=== PATIENT | male | born 1995 | race American Indian/Alaskan Native ===

== ENCOUNTER 2019-01-16 02:58 | Emergency (ER) | payer SELFPAY ==
[2019-01-16 03:16] VITALS: BP 123/79
--- NOTE | 2019-01-16 03:39 | XRay Report ---
CHEST 1 VIEW INDICATION: Chest Pain. COMPARISON: None FINDINGS: Support devices: None. Heart: Within normal limits. Lungs/Pleura: No acute air space or interstitial disease. Additional findings: None. IMPRESSION: 1. No acute findings. Signer Name: Doc Sims MD Signed: 01/16/2019 3:35 AM Workstation Name: [id number]
--- NOTE | 2019-01-16 06:32 | Emergency Department Report ---
ED General Adult HPI - General Chief complaint: Chest Pain Stated complaint: CHEST PAIN Time Seen by Provider: 01/16/19 05:57 Source: patient Mode of arrival: Ambulatory Limitations: No Limitations - History of Present Illness Initial comments: pt is a 23 y/o aam who present for chest wall pain exacerbated by deep breathing and movement x 2 days pt denies sob no wheezing no sob , no back pain pt denies injury fall or trauma, no n/v , pt ambulatory with steady gait no pnd no activity intolerance pt endorse hx of anxiety , there is no SI or HI Onset/Timin -: days(s) Location: chest (epigastric) Radiation: non-radiation Severity scale (0 -10): 3 Quality: sharp Consistency: intermittent Improves with: none Worsens with: movement, other (deep inspiration ) Associated Symptoms: chest pain Treatments Prior to Arrival: none - Related Data Previous Rx's Medication Instructions Recorded Last Taken Type Ibuprofen [Motrin 800 MG tab] 800 mg PO Q8HR PRN #30 tablet 01/16/19 Unknown Rx Allergies Allergy/AdvReac Type Severity Reaction Status Date / Time No Known Allergies Allergy Unverified 01/16/19 03:16 ED Review of Systems ROS: Stated complaint: CHEST PAIN Other details as noted in HPI Constitutional: denies: chills, fever Eyes: denies: eye pain, eye discharge, vision change ENT: denies: ear pain, throat pain Respiratory: denies: cough, orthopnea, shortness of breath, SOB with exertion, stridor, wheezing Cardiovascular: chest pain (chest wall pain ). denies: palpitations, dyspnea on exertion, orthopnea, paroxysmal nocturnal dyspnea Endocrine: no symptoms reported Gastrointestinal: denies: abdominal pain, nausea, diarrhea Genitourinary: denies: urgency, dysuria Musculoskeletal: denies: back pain, joint swelling, arthralgia Skin: denies: rash, lesions Neurological: denies: headache, weakness, paresthesias Psychiatric: denies: anxiety, depression Hematological/Lymphatic: denies: easy bleeding, easy bruising ED Past Medical Hx - Past Medical History Previous Medical History?: Yes Hx Headaches / Migraines: Yes Hx Psychiatric Treatment: Yes (Anxiety) Additional medical history: sleep apnea - Surgical History Past Surgical History?: No - Social History Smoking Status: Current Every Day Smoker Substance Use Type: Alcohol - Medications Home Medications: Home Medications Medication Instructions Recorded Confirmed Last Taken Type Ibuprofen [Motrin 800 MG tab] 800 mg PO Q8HR PRN #30 tablet 01/16/19 Unknown Rx ED Physical Exam - General Limitations: No Limitations General appearance: alert, in no apparent distress - Head Head exam: Present: atraumatic, normocephalic, normal inspection - Eye Eye exam: Present: normal appearance, PERRL, EOMI Pupils: Present: normal accommodation - ENT ENT exam: Present: mucous membranes moist - Neck Neck exam: Present: normal inspection, full ROM. Absent: tenderness, meningismus, lymphadenopathy, thyromegaly - Respiratory Respiratory exam: Present: normal lung sounds bilaterally, chest wall tenderness (anterior chest wall pain reproducible to palpation there is no crepitis no stepoff no ecchymosis no swelling ). Absent: respiratory distress, wheezes, stridor, prolonged expiratory - Cardiovascular Cardiovascular Exam: Present: regular rate, normal rhythm, normal heart sounds. Absent: systolic murmur, diastolic murmur, rubs, gallop - GI/Abdominal GI/Abdominal exam: Present: soft, normal bowel sounds. Absent: distended, tenderness, guarding, rebound, rigid, bruit, hernia - Rectal Rectal exam: Present: deferred - Extremities Exam Extremities exam: Present: normal inspection, full ROM, normal capillary refill. Absent: tenderness, pedal edema, joint swelling, calf tenderness - Back Exam Back exam: Present: normal inspection, full ROM. Absent: tenderness, CVA tenderness (R), CVA tenderness (L), muscle spasm, paraspinal tenderness, vertebr al tenderness, rash noted - Neurological Exam Neurological exam: Present: alert, oriented X3, CN II-XII intact, normal gait, reflexes normal. Absent: motor sensory deficit - Psychiatric Psychiatric exam: Present: normal affect, normal mood - Skin Skin exam: Present: warm, dry, intact, normal color. Absent: rash ED Course Vital Signs 01/16/19 03:15 Temperature 98.5 F Pulse Rate 83 Respiratory 18 Rate Blood Pressure 123/79 O2 Sat by Pulse 97 Oximetry ED Medical Decision Making - EKG Data EKG shows normal: sinus rhythm, axis, intervals, QRS complexes, ST-T waves Rate: normal - EKG Data When compared to previous EKG there are: previous EKG unavailable Interpretation: normal EKG (EKG interp by ED attending NSR No ST Elevated IA ) - Radiology Data Radiology results: report reviewed, image reviewed Ordering Physician: SARAH WOMACK MD Date of Service: 01/16/19 Procedure(s): XR chest 1V ap Accession Number(s): [id number] cc: ED MD VU Fluoro Time In Minutes: CHEST 1 VIEW INDICATION: Chest Pain. COMPARISON: None FINDINGS: Support devices: None. Heart: Within normal limits. Lungs/Pleura: No acute air space or interstitial disease. Additional findings: None. IMPRESSION: 1. No acute findings. Signer Name: Doc Sims MD Signed: 01/16/2019 3:35 AM Workstation Name: [id number] Transcribed By: JW Dictated By: Doc Sims MD Electronically Authenticated By: Doc Sims MD Signed Date/Time: 01/16/19334 DD/ 3 TD/TT: - Medical Decision Making cxr: No infiltrate no opacities, ekg: NSR no ST Elevated IA, pain is reproducible to deep palpation, plan: ibuprofen po prn pain follow up with pcp in 2-3 day return to ed if symptoms worsen. pt verbalized agreement and understanding of discharge plan. Critical care attestation.: If time is entered above; I have spent that time in minutes in the direct care of this critically ill patient, excluding procedure time. ED Disposition Clinical Impression: Chest wall pain Disposition: DC-01 TO HOME OR SELFCARE Is pt being admited?: No Does the pt Need Aspirin: No Condition: Stable Instructions: Chest Pain (ED) Prescriptions: Ibuprofen [Motrin 800 MG tab] 800 mg PO Q8HR PRN #30 tablet PRN Reason: Pain , Severe (7-10) Referrals: SOFIA PRABHAKAR MD [Primary Care Provider] - 3-5 Days Forms: Work/School Release Form(ED) Time of Disposition: 06:46
== END 2019-01-16 07:04 | disposition home or self-care (01) ==
LOC: ED 02:58
DX: R07.89 Other chest pain (principal); G43.909 Migraine, unspecified, not intractable, without status migrainosus; F41.9 Anxiety disorder, unspecified; F17.200 Nicotine dependence, unspecified, uncomplicated
CPT/HCPCS: 71045; 93005; 93010

== ENCOUNTER 2019-02-26 01:49 | Emergency (ER) | payer SELFPAY ==
[2019-02-26 02:39] LABS: Hematocrit 43.2 % (35.5-45.6); Hemoglobin 14.5 gm/dl (11.8-15.2); Mean Corpuscular HGB Conc 33 % (32-34); Mean Corpuscular Volume 84 fl (84-94); Platelet Count 294 K/mm3 (140-440); Red Blood Count 5.16 M/mm3 (3.65-5.03); Red Cell Distribution Width 14.1 % (13.2-15.2)
[2019-02-26 02:51] LABS: BUN/Creatinine Ratio 12; Blood Urea Nitrogen 11 mg/dL (9-20); Calcium 8.9 mg/dL (8.4-10.2); Hemolysis Index 12
[2019-02-26 03:51] LABS: Total Cells Counted 100
[2019-02-26 03:52] LABS: Platelet Estimate Consistent w Auto; RBC Morphology Normal
[2019-02-26 04:35] LABS: Amphetamine Screen,Urine PRESUMPTIVE NEGATIVE; Benzodiazepines Screen,Urine PRESUMPTIVE NEGATIVE; Cannabinoid Screen,Urine PRESUMPTIVE NEGATIVE; Cocaine Screen,Urine PRESUMPTIVE NEGATIVE; Methadone Screen,Urine PRESUMPTIVE NEGATIVE; Opiate Screen,Urine PRESUMPTIVE NEGATIVE
[2019-02-26 04:40] LABS: Bacteria,Urine 1+ /HPF (Negative); Bilirubin,Urine NEG (Negative); Blood,Urine NEG (Negative); Color,Urine Yellow (Yellow); Mucus,Urine 1+ /HPF; Protein,Urine <15 mg/dL mg/dL (Negative)
[2019-02-26] MEDS ORDERED: AZITHROMYCIN 250 MG TAB PO ONE (05:38)
[2019-02-26] MEDS ORDERED: LIDOCAINE-MPF (1%) 10 MG/1 ML VIAL 5 ML INFILTRATI ONE (05:38)
--- NOTE | 2019-02-26 05:41 | Emergency Department Report ---
ED Psych HPI - General Chief Complaint: Psych Stated Complaint: MH EVAL/SUICIDAL THOUGHTS Time Seen by Provider: 02/26/19 04:05 Source: patient Mode of arrival: Ambulatory Limitations: No Limitations - History of Present Illness Initial Comments: 23-year-old male with a past medical history of "mood swings" presents to the hospital with suicidal thoughts for "a while". Patient denies plan today. He denies homicidal ideation, auditory, or visual nations. No physical complaints reported. Patient has a history of suicide attempts in the past by hanging while he was in the . He is not currently on any psychiatric medication. - Related Data Home Medications Medication Instructions Recorded Confirmed Last Taken No Known Home Medications [No 02/26/19 02/26/19 Unknown Reported Home Medications] Allergies Allergy/AdvReac Type Severity Reaction Status Date / Time No Known Allergies Allergy Unverified 01/16/19 03:16 ED Review of Systems ROS: Stated complaint: MH EVAL/SUICIDAL THOUGHTS Other details as noted in HPI Comment: All other systems reviewed and negative ED Past Medical Hx - Past Medical History Previous Medical History?: Yes Hx Headaches / Migraines: Yes Hx Psychiatric Treatment: Yes (Anxiety, bipolar, depression) Additional medical history: sleep apnea - Social History Smoking Status: Current Every Day Smoker Substance Use Type: Marijuana - Medications Home Medications: Home Medications Medication Instructions Recorded Confirmed Last Taken Type No Known Home Medications [No 02/26/19 02/26/19 Unknown History Reported Home Medications] ED Physical Exam - General Limitations: No Limitations - Other Other exam information: Gen.: No acute distress Head: Atraumatic Eyes: Normal appearance ENT: Moist mucous membranes Neck: Normal appearance, no posterior midline tenderness, no meningismus Chest: Clear to auscultation bilaterally Cardiovascular: Regular rate and rhythm Abdomen: Normal appearance, soft, nontender, no rebound or guarding, normal bowel sounds Back: Normal appearance, nontender Extremity: Full range of motion, normal appearance Neuro: Alert and oriented 3, clear speech, no focal motor or sensory deficit Psychiatric: Appropriate Skin: No rash ED Course Vital Signs 02/26/19 02:09 Temperature 98.4 F Pulse Rate 78 Respiratory 18 Rate Blood Pressure 127/65 O2 Sat by Pulse 99 Oximetry ED Medical Decision Making - Lab Data Result diagrams: 02/26/19 02:25 02/26/19 02:25 Lab Results 02/26/19 02/26/1919 Range/Units 02:25 02:25 02:25 WBC (4.5-11.0) K/mm3 RBC (3.65-5.03) M/mm3 Hgb (11.8-15.2) gm/dl Hct (35.5-45.6) % MCV (84-94) fl MCH (28-32) pg MCHC (32-34) % RDW (13.2-15.2) % Plt Count (140-440) K/mm3 Add Manual Diff Total Counted Seg Neutrophils % Seg Neuts % (Manual) (40.0-70.0) % Band Neutrophils % % Lymphocytes % (Manual) (13.4-35.0) % Reactive Lymphs % (Man) % Monocytes % (Manual) (0.0-7.3) % Eosinophils % (Manual) (0.0-4.3) % Basophils % (Manual) (0.0-1.8) % Metamyelocytes % % Myelocytes % % Promyelocytes % % Blast Cells % % Nucleated RBC % Seg Neutrophils # Man (1.8-7.7) K/mm3 Band Neutrophils # K/mm3 Lymphocytes # (Manual) (1.2-5.4) K/mm3 Abs React Lymphs (Man) K/mm3 Monocytes # (Manual) (0.0-0.8) K/mm3 Eosinophils # (Manual) (0.0-0.4) K/mm3 Basophils # (Manual) (0.0-0.1) K/mm3 Metamyelocytes # K/mm3 Myelocytes # K/mm3 Promyelocytes # K/mm3 Blast Cells # K/mm3 WBC Morphology Hypersegmented Neuts Hyposegmented Neuts Hypogranular Neuts Smudge Cells Toxic Granulation Toxic Vacuolation Dohle Bodies Pelger-Huet Anomaly Vee Rods Platelet Estimate Clumped Platelets Plt Clumps, EDTA Large Platelets Giant Platelets Platelet Satelliting Plt Morphology Comment RBC Morphology Dimorphic RBCs Polychromasia Hypochromasia Poikilocytosis Anisocytosis Microcytosis Macrocytosis Spherocytes Pappenheimer Bodies Sickle Cells Target Cells Tear Drop Cells Ovalocytes Helmet Cells [place] Bodies [place] Rings [place] Cells Bite Cells Crenated Cell Elliptocytes Acanthocytes (Spur) Rouleaux Hemoglobin C Crystals Schistocytes Malaria parasites Miah Bodies Hem Pathologist Commnt Sodium 137 (137-145) mmol/L Potassium 3.9 (3.6-5.0) mmol/L Chloride 102.3 (98-107) mmol/L Carbon Dioxide 26 (22-30) mmol/L Anion Gap 13 mmol/L BUN 11 (9-20) mg/dL Creatinine 0.9 (0.8-1.5) mg/dL Estimated GFR > 60 ml/min BUN/Creatinine Ratio 12 % Glucose 94 (75-100) mg/dL Calcium 8.9 (8.4-10.2) mg/dL Urine Color (Yellow) Urine Turbidity (Clear) Urine pH (5.0-7.0) Ur Specific [place] (1.003-1.030) Urine Protein (Negative) mg/dL Urine Glucose (UA) (Negative) mg/dL Urine Ketones (Negative) mg/dL Urine Blood (Negative) Urine Nitrite (Negative) Urine Bilirubin (Negative) Urine Urobilinogen (<2.0) mg/dL Ur Leukocyte Esterase (Negative) Urine WBC (Auto) (0.0-6.0) /HPF Urine RBC (Auto) (0.0-6.0) /HPF U Epithel Cells (Auto) (0-13.0) /HPF Urine Bacteria (Auto) (Negative) /HPF Urine Mucus /HPF Salicylates < 0.3 L (2.8-20.0) mg/dL Urine Opiates Screen Urine Methadone Screen Acetaminophen < 5.0 L (10.0-30.0) ug/mL Ur Barbiturates Screen Ur Phencyclidine Scrn Ur Amphetamines Screen U Benzodiazepines Scrn Urine Cocaine Screen U Marijuana (THC) Screen Drugs of Abuse Note Plasma/Serum Alcohol (0-0.07) % 02/26/19 02/26/19 02/26/19 Range/Units 02:25 02:25 03:13 WBC 4.9 (4.5-11.0) K/mm3 RBC 5.16 H (3.65-5.03) M/mm3 Hgb 14.5 (11.8-15.2) gm/dl Hct 43.2 (35.5-45.6) % MCV 84 (84-94) fl MCH 28 (28-32) pg MCHC 33 (32-34) % RDW 14.1 (13.2-15.2) % Plt Count 294 (140-440) K/mm3 Add Manual Diff Complete Total Counted 100 Seg Neutrophils % Summer Counselor Seg Neuts % (Manual) 32.0 L (40.0-70.0) % Band Neutrophils % 0 % Lymphocytes % (Manual) 62.0 H (13.4-35.0) % Reactive Lymphs % (Man) 0 % Monocytes % (Manual) 4.0 (0.0-7.3) % Eosinophils % (Manual) 1.0 (0.0-4.3) % Basophils % (Manual) 1.0 (0.0-1.8) % Metamyelocytes % 0 % Myelocytes % 0 % Promyelocytes % 0 % Blast Cells % 0 % Nucleated RBC % Not Reportable Seg Neutrophils # Man 1.6 L (1.8-7.7) K/mm3 Band Neutrophils # 0.0 K/mm3 Lymphocytes # (Manual) 3.0 (1.2-5.4) K/mm3 Abs React Lymphs (Man) 0.0 K/mm3 Monocytes # (Manual) 0.2 (0.0-0.8) K/mm3 Eosinophils # (Manual) 0.0 (0.0-0.4) K/mm3 Basophils # (Manual) 0.0 (0.0-0.1) K/mm3 Metamyelocytes # 0.0 K/mm3 Myelocytes # 0.0 K/mm3 Promyelocytes # 0.0 K/mm3 Blast Cells # 0.0 K/mm3 WBC Morphology Not Reportable Hypersegmented Neuts Not Reportable Hyposegmented Neuts Not Reportable Hypogranular Neuts Not Reportable Smudge Cells Not Reportable Toxic Granulation Not Reportable Toxic Vacuolation Not Reportable Dohle Bodies Not Reportable Pelger-Huet Anomaly Not Reportable Vee Rods Not Reportable Platelet Estimate Consistent w auto Clumped Platelets Not Reportable Plt Clumps, EDTA Not Reportable Large Platelets Not Reportable Giant Platelets Not Reportable Platelet Satelliting Not Reportable Plt Morphology Comment Not Reportable RBC Morphology Normal Dimorphic RBCs Not Reportable Polychromasia Not Reportable Hypochromasia Not Reportable Poikilocytosis Not Reportable Anisocytosis Not Reportable Microcytosis Not Reportable Macrocytosis Not Reportable Spherocytes Not Reportable Pappenheimer Bodies Not Reportable Sickle Cells Not Reportable Target Cells Not Reportable Tear Drop Cells Not Reportable Ovalocytes Not Reportable Helmet Cells Not Reportable [place] Bodies Not Reportable [place] Rings Not Reportable [place] Cells Not Reportable Bite Cells Not Reportable Crenated Cell Not Reportable Elliptocytes Not Reportable Acanthocytes (Spur) Not Reportable Rouleaux Not Reportable Hemoglobin C Crystals Not Reportable Schistocytes Not Reportable Malaria parasites Not Reportable Miah Bodies Not Reportable Hem Pathologist Commnt No Sodium (137-145) mmol/L Potassium (3.6-5.0) mmol/L Chloride (98-107) mmol/L Carbon Dioxide (22-30) mmol/L Anion Gap mmol/L BUN (9-20) mg/dL Creatinine (0.8-1.5) mg/dL Estimated GFR ml/min BUN/Creatinine Ratio % Glucose (75-100) mg/dL Calcium (8.4-10.2) mg/dL Urine Color Yellow (Yellow) Urine Turbidity Slightly-cloudy (Clear) Urine pH 6.0 (5.0-7.0) Ur Specific [place] 1.027 (1.003-1.030) Urine Protein <15 mg/dl (Negative) mg/dL Urine Glucose (UA) Neg (Negative) mg/dL Urine Ketones Neg (Negative) mg/dL Urine Blood Neg (Negative) Urine Nitrite Neg (Negative) Urine Bilirubin Neg (Negative) Urine Urobilinogen 2.0 (<2.0) mg/dL Ur Leukocyte Esterase Sm (Negative) Urine WBC (Auto) 23.0 H (0.0-6.0) /HPF Urine RBC (Auto) 1.0 (0.0-6.0) /HPF U Epithel Cells (Auto) < 1.0 (0-13.0) /HPF Urine Bacteria (Auto) 1+ (Negative) /HPF Urine Mucus 1+ /HPF Salicylates (2.8-20.0) mg/dL Urine Opiates Screen Urine Methadone Screen Acetaminophen (10.0-30.0) ug/mL Ur Barbiturates Screen Ur Phencyclidine Scrn Ur Amphetamines Screen U Benzodiazepines Scrn Urine Cocaine Screen U Marijuana (THC) Screen Drugs of Abuse Note Plasma/Serum Alcohol < 0.01 (0-0.07) % 02/26/19 Range/Units 03:13 WBC (4.5-11.0) K/mm3 RBC (3.65-5.03) M/mm3 Hgb (11.8-15.2) gm/dl Hct (35.5-45.6) % MCV (84-94) fl MCH (28-32) pg MCHC (32-34) % RDW (13.2-15.2) % Plt Count (140-440) K/mm3 Add Manual Diff Total Counted Seg Neutrophils % Seg Neuts % (Manual) (40.0-70.0) % Band Neutrophils % % Lymphocytes % (Manual) (13.4-35.0) % Reactive Lymphs % (Man) % Monocytes % (Manual) (0.0-7.3) % Eosinophils % (Manual) (0.0-4.3) % Basophils % (Manual) (0.0-1.8) % Metamyelocytes % % Myelocytes % % Promyelocytes % % Blast Cells % % Nucleated RBC % Seg Neutrophils # Man (1.8-7.7) K/mm3 Band Neutrophils # K/mm3 Lymphocytes # (Manual) (1.2-5.4) K/mm3 Abs React Lymphs (Man) K/mm3 Monocytes # (Manual) (0.0-0.8) K/mm3 Eosinophils # (Manual) (0.0-0.4) K/mm3 Basophils # (Manual) (0.0-0.1) K/mm3 Metamyelocytes # K/mm3 Myelocytes # K/mm3 Promyelocytes # K/mm3 Blast Cells # K/mm3 WBC Morphology Hypersegmented Neuts Hyposegmented Neuts Hypogranular Neuts Smudge Cells Toxic Granulation Toxic Vacuolation Dohle Bodies Pelger-Huet Anomaly Vee Rods Platelet Estimate Clumped Platelets Plt Clumps, EDTA Large Platelets Giant Platelets Platelet Satelliting Plt Morphology Comment RBC Morphology Dimorphic RBCs Polychromasia Hypochromasia Poikilocytosis Anisocytosis Microcytosis Macrocytosis Spherocytes Pappenheimer Bodies Sickle Cells Target Cells Tear Drop Cells Ovalocytes Helmet Cells [place] Bodies [place] Rings [place] Cells Bite Cells Crenated Cell Elliptocytes Acanthocytes (Spur) Rouleaux Hemoglobin C Crystals Schistocytes Malaria parasites Miah Bodies Hem Pathologist Commnt Sodium (137-145) mmol/L Potassium (3.6-5.0) mmol/L Chloride (98-107) mmol/L Carbon Dioxide (22-30) mmol/L Anion Gap mmol/L BUN (9-20) mg/dL Creatinine (0.8-1.5) mg/dL Estimated GFR ml/min BUN/Creatinine Ratio % Glucose (75-100) mg/dL Calcium (8.4-10.2) mg/dL Urine Color (Yellow) Urine Turbidity (Clear) Urine pH (5.0-7.0) Ur Specific [place] (1.003-1.030) Urine Protein (Negative) mg/dL Urine Glucose (UA) (Negative) mg/dL Urine Ketones (Negative) mg/dL Urine Blood (Negative) Urine Nitrite (Negative) Urine Bilirubin (Negative) Urine Urobilinogen (<2.0) mg/dL Ur Leukocyte Esterase (Negative) Urine WBC (Auto) (0.0-6.0) /HPF Urine RBC (Auto) (0.0-6.0) /HPF U Epithel Cells (Auto) (0-13.0) /HPF Urine Bacteria (Auto) (Negative) /HPF Urine Mucus /HPF Salicylates (2.8-20.0) mg/dL Urine Opiates Screen Presumptive negative Urine Methadone Screen Presumptive negative Acetaminophen (10.0-30.0) ug/mL Ur Barbiturates Screen Presumptive negative Ur Phencyclidine Scrn Presumptive negative Ur Amphetamines Screen Presumptive negative U Benzodiazepines Scrn Presumptive negative Urine Cocaine Screen Presumptive negative U Marijuana (THC) Screen Presumptive negative Drugs of Abuse Note Disclamer Plasma/Serum Alcohol (0-0.07) % - Medical Decision Making Patient is increased white cells in urine. Given his age he was treated with Rocephin and azithromycin for STD related urethritis. Urine culture pending. Otherwise patient is medically cleared for inpatient psychiatric treatment and awaiting assessment and placement. - Differential Diagnosis suicidal, homicidal, depression, bipolar Critical Care Time: No Critical care attestation.: If time is entered above; I have spent that time in minutes in the direct care of this critically ill patient, excluding procedure time. ED Disposition Clinical Impression: Suicidal ideation, Urethritis, Medical clearance for psychiatric admission Disposition: DC/TX-65 PSY HOSP/PSY UNIT Is pt being admited?: No Condition: Stable Forms: STI Treatment and Prevention Time of Disposition: 05:40 (awaiting placement)
[2019-02-26] MEDS ORDERED: AZITHROMYCIN 250 MG TAB ONE (08:53)
[2019-02-26] MEDS ORDERED: LIDOCAINE-MPF (1%) 10 MG/1 ML VIAL 5 ML ONE (08:58)
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
[2019-02-26] MEDS: MIRTAZAPINE 15 MG TAB PO SCH (21:58)
--- NOTE | 2019-02-27 11:02 | Progress Note ---
Subjective - Reason for Consult Consult date: 02/27/19 Reason for consult: Psychiatry Follow-up - Chief Complaint Chief complaint: "Nothing has changed" 23 y.o. AA male who presented to the ER for SI's. Today the patient was guarded during the assessment. The patient would not answer most questioned. He stated, 'I don't know why I feel this way." He wasn't to receptive during the interview. He would not confirm or deny SI's, but denies HI's and AVH's. No indications of side effects from hie medication. Mental Status Exam - Vital signs Last Vital Signs Temp 97.4 F L 02/27/19 07:00 Pulse 55 L 02/27/19 07:00 Resp 16 02/27/19 07:00 BP 121/60 02/27/19 07:00 Pulse Ox 99 02/27/19 07:00 - Exam Narrative exam: MSE: Appearance: calm, cooperative Behavior: regular eye contact Speech: regular rate and tone Mood: guarded Affect: congruent to mood Thought Process: circumstantial Thought Content: denies HI's and AVH's Motor Activity: sitting up in bed Cognition: A/O x3 Insight: variable Judgment: variable Assessment and Plan Impression: MDD. PTSD. The patient was guarded during the assessment. UDS is negative. DDx: Bipolar DO Recommendation/Plan: Continue 1013 and Remeron 15 mg Po daily for Depression/PTSD. Discussed possible sucidality/medication induced bel with the patient reference Remeron, he verbalized understanding. Dispo: The patient was referred to inpatient psy services. Staffed with Dr Pio Ramey.
[2019-02-27] MEDS: MIRTAZAPINE 15 MG TAB PO SCH (22:29)
--- NOTE | 2019-02-28 10:20 | Emergency Department Report ---
ED General Adult HPI - General Chief complaint: Psych Stated complaint: MH EVAL/SUICIDAL THOUGHTS Time Seen by Provider: 02/26/19 04:05 Source: patient Mode of arrival: Ambulatory Limitations: No Limitations - History of Present Illness Initial comments: Nothing has changed" 23 y.o. AA male who presented to the ER for SI's. Today the patient more open today. He stressors at home concerning his father and stepmother. He is vague but overall is paranoid regarding his father and stepmother. He has an underlying hatred in regards to his stepmother and feels his father wasn't there for him and his older sister and the relationship has remained strained and volatile at times. He becomes anxious and unable to sit still when he talks about this and mood changes drastically. He would not confirm or deny SI's, but denies HI's and AVH's. No indications of side effects from hie medication. Mental Status Exam - Vital signs Last Vital Signs Temp 97.4 F L 02/27/19 07:00 Pulse 55 L 02/27/19 07:00 Resp 16 02/27/19 07:00 BP 121/60 02/27/19 07:00 Pulse Ox 99 02/27/19 07:00 - Exam Narrative exam: MSE: Appearance: calm, cooperative Behavior: regular eye contact Speech: regular rate and tone Mood: guarded Affect: congruent to mood Thought Process: circumstantial Thought Content: denies HI's and AVH's Motor Activity: sitting up in bed Cognition: A/O x3 Insight: variable Judgment: variable Assessment and Plan Impression: MDD. PTSD. The patient was guarded during the assessment. UDS is negative. DDx: Bipolar DO Recommendation/Plan: Continue 1013 and Remeron 15 mg Po daily for Depression/PTSD. Discussed possible sucidality/medication induced bel with the patient reference Remeron, he verbalized understanding. Dispo: The patient was referred to inpatient psy services. Will staff with Dr Pio Ramey. Complaint: follow-up Severity scale (0 -10): 0 - Related Data Home Medications Medication Instructions Recorded Confirmed Last Taken No Known Home Medications [No 02/26/19 02/26/19 Unknown Reported Home Medications] Allergies Allergy/AdvReac Type Severity Reaction Status Date / Time No Known Allergies Allergy Unverified 01/16/19 03:16 ED Review of Systems ROS: Stated complaint: MH EVAL/SUICIDAL THOUGHTS Other details as noted in HPI ED Past Medical Hx - Past Medical History Previous Medical History?: Yes Hx Headaches / Migraines: Yes Hx Psychiatric Treatment: Yes (Anxiety, bipolar, depression) Additional medical history: sleep apnea - Social History Smoking Status: Current Every Day Smoker Substance Use Type: Marijuana - Medications Home Medications: Home Medications Medication Instructions Recorded Confirmed Last Taken Type No Known Home Medications [No 02/26/19 02/26/19 Unknown History Reported Home Medications] ED Physical Exam - General Limitations: No Limitations ED Course Vital Signs 02/26/19 02/26/19 02/26/19 02:09 07:30 19:15 Temperature 98.4 F 97.7 F 97.7 F Pulse Rate 78 79 65 Respiratory 18 18 16 Rate Blood Pressure 127/65 Blood Pressure 107/70 135/60 [107/70] O2 Sat by Pulse 99 98 99 Oximetry 02/27/19 02/27/19 02/27/19 02:32 07:00 13:00 Temperature 97.5 F L 97.4 F L 97.9 F Pulse Rate 65 55 L 83 Respiratory 16 16 18 Rate Blood Pressure Blood Pressure 107/50 121/60 131/74 [107/70] O2 Sat by Pulse 98 99 100 Oximetry 02/27/19 02/28/19 02/28/19 19:45 02:23 07:00 Temperature 98.4 F 97.1 F L 97.4 F L Pulse Rate 80 79 70 Respiratory 18 16 18 Rate Blood Pressure Blood Pressure 120/64 120/63 126/72 [107/70] O2 Sat by Pulse 99 99 99 Oximetry 02/28/19 02/28/19 03/01/19 16:47 19:30 01:00 Temperature 98.2 F 98.1 F 97.5 F L Pulse Rate 75 79 61 Respiratory 18 17 18 Rate Blood Pressure Blood Pressure 131/73 124/73 104/62 [107/70] O2 Sat by Pulse 97 98 95 Oximetry 03/01/19 07:00 Temperature 97.4 F L Pulse Rate 78 Respiratory 18 Rate Blood Pressure Blood Pressure 116/56 [107/70] O2 Sat by Pulse 100 Oximetry ED Medical Decision Making - Lab Data Result diagrams: 02/26/19 02:25 02/26/19 02:25 Critical Care Time: No Critical care attestation.: If time is entered above; I have spent that time in minutes in the direct care of this critically ill patient, excluding procedure time. ED Disposition Clinical Impression: Suicidal ideation, Urethritis, Medical clearance for psychiatric admission Disposition: DC/[place]-[facility] PSY HOSP/PSY UNIT Condition: Stable Referrals: PRIMARY CARE, [Primary Care Provider] - 3-5 Days Forms: STI Treatment and Prevention
[2019-02-28] MEDS: MIRTAZAPINE 15 MG TAB PO SCH (21:51)
[2019-03-01] MEDS ORDERED: ACETAMINOPHEN 325 MG TAB PO ONE (02:13)
[2019-03-01] MEDS ORDERED: ACETAMINOPHEN 325 MG TAB ONE (02:15)
[2019-03-01 08:11] VITALS: BP 116/56
--- NOTE | 2019-03-01 11:00 | Emergency Department Report ---
ED General Adult HPI - General Chief complaint: Psych Stated complaint: MH EVAL/SUICIDAL THOUGHTS Time Seen by Provider: 03/01/19 10:53 Source: patient Mode of arrival: Ambulatory Limitations: No Limitations - History of Present Illness Initial comments: Nothing has changed" 23 y.o. AA male who presented to the ER for SI's. Today the patient continues to be more open today. He has stressors at home concerning his father and stepmother. He was vague yesterday, today he is more hopeful in regards to his home situation and his future with his and his fathers relationship. He reports prompting a phone with his father yesterday and asking that they talk and try and work towards building on their relationship. He asked me today how to go about approaching his father and still being respectful of his stepmother. His anxiety still apparent and he wants to work on that as well . He Denies SI's and HI's and Auditory and visual Hallucinations. No indications of side effects from his medication. Mental Status Exam - Vital signs Last Vital Signs Temp 97.4 F L 02/27/19 07:00 Pulse 55 L 02/27/19 07:00 Resp 16 02/27/19 07:00 BP 121/60 02/27/19 07:00 Pulse Ox 99 02/27/19 07:00 - Exam Narrative exam: MSE: Appearance: calm, cooperative Behavior: regular eye contact Speech: regular rate and tone Mood: guarded Affect: congruent to mood Thought Process: circumstantial Thought Content: denies HI's and AVH's Motor Activity: sitting up in bed Cognition: A/O x3 Insight: variable Judgment: variable Assessment and Plan Impression: MDD. PTSD. The patient was guarded during the assessment. UDS is negative. DDx: Bipolar DO Recommendation/Plan: Continue 1013 and Remeron 15 mg Po daily for Depression/PTSD. Discussed possible sucidality/medication induced bel with the patient reference Remeron, he verbalized understanding. Dispo: The patient was referred to inpatient psy services. Will staff with Dr Pio Ramey. Complaint: follow-up Severity scale (0 -10): 0 - Related Data Home Medications Medication Instructions Recorded Confirmed Last Taken No Known Home Medications [No 02/26/19 02/26/19 Unknown Reported Home Medications] Allergies Allergy/AdvReac Type Severity Reaction Status Date / Time No Known Allergies Allergy Unverified 01/16/19 03:16 ED Review of Systems ROS: Stated complaint: MH EVAL/SUICIDAL THOUGHTS Other details as noted in HPI ED Past Medical Hx - Past Medical History Previous Medical History?: Yes Hx Headaches / Migraines: Yes Hx Psychiatric Treatment: Yes (Anxiety, bipolar, depression) Additional medical history: sleep apnea - Social History Smoking Status: Current Every Day Smoker Substance Use Type: Marijuana - Medications Home Medications: Home Medications Medication Instructions Recorded Confirmed Last Taken Type No Known Home Medications [No 02/26/19 02/26/19 Unknown History Reported Home Medications] ED Physical Exam - General Limitations: No Limitations ED Course Vital Signs 02/26/19 02/26/19 02/26/19 02:09 07:30 19:15 Temperature 98.4 F 97.7 F 97.7 F Pulse Rate 78 79 65 Respiratory 18 18 16 Rate Blood Pressure 127/65 Blood Pressure 107/70 135/60 [107/70] O2 Sat by Pulse 99 98 99 Oximetry 02/27/19 02/27/19 02/27/19 02:32 07:00 13:00 Temperature 97.5 F L 97.4 F L 97.9 F Pulse Rate 65 55 L 83 Respiratory 16 16 18 Rate Blood Pressure Blood Pressure 107/50 121/60 131/74 [107/70] O2 Sat by Pulse 98 99 100 Oximetry 02/27/19 02/28/19 02/28/19 19:45 02:23 07:00 Temperature 98.4 F 97.1 F L 97.4 F L Pulse Rate 80 79 70 Respiratory 18 16 18 Rate Blood Pressure Blood Pressure 120/64 120/63 126/72 [107/70] O2 Sat by Pulse 99 99 99 Oximetry ED Medical Decision Making - Lab Data Result diagrams: 02/26/19 02:25 02/26/19 02:25 Critical Care Time: No Critical care attestation.: If time is entered above; I have spent that time in minutes in the direct care of this critically ill patient, excluding procedure time. ED Disposition Clinical Impression: Suicidal ideation, Urethritis, Medical clearance for psychiatric admission Disposition: DC/[facility]-65 PSY HOSP/PSY UNIT Condition: Stable Referrals: PRIMARY CARE,MD [Primary Care Provider] - 3-5 Days Forms: STI Treatment and Prevention MD Complaint: follow-up Severity scale (0 -10): 0 - Related Data Home Medications Medication Instructions Recorded Confirmed Last Taken No Known Home Medications [No 02/26/19 02/26/19 Unknown Reported Home Medications] Allergies Allergy/AdvReac Type Severity Reaction Status Date / Time No Known Allergies Allergy Unverified 01/16/19 03:16 ED Review of Systems ROS: Stated complaint: MH EVAL/SUICIDAL THOUGHTS Other details as noted in HPI ED Past Medical Hx - Past Medical History Previous Medical History?: Yes Hx Headaches / Migraines: Yes Hx Psychiatric Treatment: Yes (Anxiety, bipolar, depression) Additional medical history: sleep apnea - Social History Smoking Status: Current Every Day Smoker Substance Use Type: Marijuana - Medications Home Medications: Home Medications Medication Instructions Recorded Confirmed Last Taken Type No Known Home Medications [No 02/26/19 02/26/19 Unknown History Reported Home Medications] ED Physical Exam - General Limitations: No Limitations ED Course Vital Signs 02/26/19 02/26/19 02/26/19 02:09 07:30 19:15 Temperature 98.4 F 97.7 F 97.7 F Pulse Rate 78 79 65 Respiratory 18 18 16 Rate Blood Pressure 127/65 Blood Pressure 107/70 135/60 [107/70] O2 Sat by Pulse 99 98 99 Oximetry 02/27/19 02/27/19 02/27/19 02:32 07:00 13:00 Temperature 97.5 F L 97.4 F L 97.9 F Pulse Rate 65 55 L 83 Respiratory 16 16 18 Rate Blood Pressure Blood Pressure 107/50 121/60 131/74 [107/70] O2 Sat by Pulse 98 99 100 Oximetry 02/27/19 02/28/19 02/28/19 19:45 02:23 07:00 Temperature 98.4 F 97.1 F L 97.4 F L Pulse Rate 80 79 70 Respiratory 18 16 18 Rate Blood Pressure Blood Pressure 120/64 120/63 126/72 [107/70] O2 Sat by Pulse 99 99 99 Oximetry 02/28/19 02/28/19 03/01/19 16:47 19:30 01:00 Temperature 98.2 F 98.1 F 97.5 F L Pulse Rate 75 79 61 Respiratory 18 17 18 Rate Blood Pressure Blood Pressure 131/73 124/73 104/62 [107/70] O2 Sat by Pulse 97 98 95 Oximetry 03/01/19 07:00 Temperature 97.4 F L Pulse Rate 78 Respiratory 18 Rate Blood Pressure Blood Pressure 116/56 [107/70] O2 Sat by Pulse 100 Oximetry ED Medical Decision Making - Lab Data Result diagrams: 02/26/19 02:25 02/26/19 02:25 Critical care attestation.: If time is entered above; I have spent that time in minutes in the direct care of this critically ill patient, excluding procedure time. ED Disposition Disposition: DC/[facility]-65 PSY HOSP/PSY UNIT Condition: Stable Referrals: PRIMARY CAREMD [Primary Care Provider] - 3-5 Days Forms: STI Treatment and Prevention
== END 2019-03-01 12:25 ==
LOC: ED 01:49 → EEVIPCON 01:49 → ED 03-01 12:25
DX: F32.9 Major depressive disorder, single episode, unspecified (principal); F43.10 Post-traumatic stress disorder, unspecified; G43.909 Migraine, unspecified, not intractable, without status migrainosus; R45.851 Suicidal ideations; N34.2 Other urethritis; F41.9 Anxiety disorder, unspecified; F17.200 Nicotine dependence, unspecified, uncomplicated; F12.10 Cannabis abuse, uncomplicated
CPT/HCPCS: 36415; 80048; 80307; 81001; 85007; 85025; 87086; 96372; 99285; J0696; 80320; G0480